=== PATIENT | female | born 1995 | race Caucasian/White ===

== ENCOUNTER → 2024-09-04 16:52 | Outpatient (CLI) | payer OTHER, SELFPAY ==
[2024-09-04 18:01] LABS: COVID-19 CEPHEID 4-PLEX PCR POSITIVE (Negative); Influenza A - CEPHEID Flu A NEGATIVE (NEGATIVE); Influenza B - CEPHEID Flu B NEGATIVE (NEGATIVE); Respiratory Syncytial Virus Negative (Negative)
== END ==
PROVIDERS: Visit Provider Chiropractor
DX: J02.9 Acute pharyngitis, unspecified (principal); Z20.9 Contact with and (suspected) exposure to unspecified communicable disease
CPT/HCPCS: 0241U; 87070